=== PATIENT | male | born 1990 | race Hispanic/Latino ===

== ENCOUNTER 2020-07-15 23:07 | Emergency (ER) | payer BC ==
[~2020-07-15] VITALS: Ht 185.4 cm; Wt 99.8 kg
[2020-07-16 00:57] VITALS: BP 133/82
== END 2020-07-16 01:06 | disposition home or self-care (01) ==
LOC: ER 23:10
DX: T18.3XXA Foreign body in small intestine, initial encounter (principal); X58.XXXA Exposure to other specified factors, initial encounter
CPT/HCPCS: 70360; 71045; 74018; 99283